=== PATIENT | female | born 1940 | race Caucasian/White ===

== ENCOUNTER → 2017-04-28 | Outpatient (CLI) | payer MEDICARE, OTHER ==
[~2017-04-28] MED LIST: CALCIUM 500500 M1 PO; MULTAQ400 MG PO; VITAMIN C PURE500 MG PO; VITAMIN D 400400 IU PO; ZOCOR 40MG40 MG PO
== END ==
LOC: MC.RAD 08:00
DX: Z12.31 Encounter for screening mammogram for malignant neoplasm of breast (principal)

== ENCOUNTER → 2018-05-11 | Outpatient (CLI) | payer MEDICARE, OTHER | LOC: MC.RAD 08:14 | DX: Z12.31 Encounter for screening mammogram for malignant neoplasm of breast (principal) ==

== ENCOUNTER → 2019-11-29 | Outpatient (CLI) | payer MEDICARE, OTHER | LOC: COL.CARD 11-28 08:00 | DX: I48.0 Paroxysmal atrial fibrillation (principal) ==

== ENCOUNTER → 2020-06-13 | Outpatient (CLI) | payer MEDICARE, OTHER ==
[~2020-06-13] MED LIST changes: +ASPIRIN 81M81 MG/TA2 PO; +CRESTOR20 MG PO; +ELIQUIS 5MG PO; +LUMIFY2.5 ML OU; +RESTASIS 60VL OU
== END ==
LOC: MC.RAD 08:28
DX: Z12.31 Encounter for screening mammogram for malignant neoplasm of breast (principal); Z98.82 Breast implant status

== ENCOUNTER → 2022-06-22 | Outpatient (CLI) | payer MEDICARE, OTHER | LOC: COL.RAD 07:25 | DX: R22.1 Localized swelling, mass and lump, neck (principal) ==